=== PATIENT | female | born 1970 | race Caucasian/White ===

== ENCOUNTER → 2021-02-18 09:53 | Outpatient (CLI) | payer OTHER, SELFPAY ==
--- NOTE | 2021-02-18 09:56 | MRI_ITS ---
STUDY: MRI RIGHT KNEE REASON FOR EXAM: Medial right knee pain for a few months, no specific injury. TECHNIQUE: Standardized fat and water weighted pulse sequences were obtained in all 3 orthogonal planes. COMPARISON: Radiographs 02/02/2021. FINDINGS: There is peripheral subluxation of the medial meniscus without discrete medial meniscal tear. There is arthrosis of the medial femorotibial compartment with chondral thinning of the medial femoral condyle (T2 sagittal image 18). Normal medial femoral condyle and tibial plateau. Normal medial collateral ligamentous complex (MCL). Normal distal semimembranosus, gracilis and semitendinosus tendons. Normal lateral meniscus. Normal hyaline cartilage of the lateral femorotibial compartment. Normal lateral femoral condyle and tibial plateau. Normal proximal tibiofibular articulation. Normal lateral collateral (fibular) ligament. Normal popliteus tendon. Normal biceps femoris tendon. Normal anterior cruciate ligament (ACL). Normal posterior cruciate ligament (PCL). Normal congruent patellofemoral articulation. There is arthrosis of the patellofemoral compartment with chondral thinning (T2 sagittal image 14). Normal medial and lateral patellar retinaculum. Normal visualized quadriceps tendon. Normal patellar tendon. Normal Hoffa''s fat pad. There is no joint effusion. There is a popliteal cyst measuring approximately 8 cm in length (T2 sagittal images 11-22). The otherwise visualized osseous structures are unremarkable. MRI/Lower Ext Joint Only (Routine) IMPRESSION: Arthrosis of the medial femorotibial and patellofemoral compartments. Popliteal cyst. No demonstrated meniscal tear. Electronically Signed: Tripp Garcia MD at 12:32 EDT Tel , Service support ,
== END ==
PROVIDERS: Referring Provider Orthopaedic Surgery; Visit Provider Orthopaedic Surgery
DX: S83.206A Unspecified tear of unspecified meniscus, current injury, right knee, initial encounter (principal); M25.361 Other instability, right knee; M71.20 Synovial cyst of popliteal space [Baker], unspecified knee
CPT/HCPCS: 73721